=== PATIENT | male | born 1980 | race Native Hawaiian/Other Pacific Islander ===

== ENCOUNTER 2019-12-07 09:57 | Emergency (ER) | payer OTHER ==
[~2019-12-07] VITALS: Ht 182.9 cm; Wt 99.8 kg
[2019-12-07 09:58] VITALS: TEMP 98.2
[2019-12-07 10:22] LABS: PLATELET COUNT 192 K/uL (142-355)
[2019-12-07 10:34] LABS: POTASSIUM 3.5 mmol/L (3.6-5.2); SODIUM 142 mmol/L (136-145)
[2019-12-07 13:00] VITALS: BP 122/78
== END 2019-12-07 13:00 | disposition home or self-care (01) ==
LOC: ED 09:57
PROVIDERS: Emergency Medicine
DX: R10.84 Generalized abdominal pain (principal); R45.1 Restlessness and agitation; R00.0 Tachycardia, unspecified
CPT/HCPCS: 80053; 80307; 82550; 82553; 84484; 85027; 93005; 96360; 96361; 99284

== ENCOUNTER 2020-01-15 16:06 | Emergency (ER) | payer OTHER ==
[~2020-01-15] VITALS: Ht 182.9 cm; Wt 99.8 kg
[2020-01-15 16:46] VITALS: TEMP 97.9
[2020-01-15 17:04] LABS: PLATELET COUNT 178 K/uL (142-355)
[2020-01-15 17:09] LABS: POTASSIUM 4.3 mmol/L (3.6-5.2); SODIUM 138 mmol/L (136-145)
[2020-01-15 17:22] LABS: PARTIAL THROMBOPLASTIN TIME 24.4 SECONDS (24.5-33.6)
[2020-01-15 17:49] VITALS: BP 126/84
== END 2020-01-15 17:50 | disposition home or self-care (01) ==
LOC: ED 16:06
PROVIDERS: Hospitalist
DX: R07.89 Other chest pain (principal); G62.89 Other specified polyneuropathies
CPT/HCPCS: 80053; 80307; 80320; 81000; 82550; 82553; 83880; 84484; 85027; 85379; 85610; 85730; 93005; 99283